=== PATIENT | female | born 1980 | race Caucasian/White ===

== ENCOUNTER → 2018-08-23 | Outpatient (CLI) | payer OTHER ==
[2018-08-23 08:29] LABS: BASOPHILS # (AUTO) 0.05 x10^3/uL (0-0.1); BASOPHILS % (AUTO) 1 % (0-1); EOSINOPHILS # (AUTO) 0.07 x10^3/uL (0-0.4); EOSINOPHILS % (AUTO) 1 % (1-7); LYMPHOCYTES # (AUTO) 1.53 x10^3/uL (1-3.4); LYMPHOCYTES % (AUTO) 24 % (22-44); MD NO; MEAN CORPUSCULAR HEMOGLOBIN 32.6 pg (27.0-34.8); MEAN CORPUSCULAR HGB CONC 33.3 g/dL (32.4-35.8); MEAN PLATELET VOLUME 9.5 fL (7.4-10.4); MONOCYTES # (AUTO) 0.49 x10^3/uL (0.2-0.8); MONOCYTES % (AUTO) 8 % (2-9); NEUTROPHILS # (AUTO) 4.21 x10^3/uL (1.8-6.8); NEUTROPHILS % (AUTO) 66 % (42-75); PLATELET COUNT 244 x10^3/uL (130-400); RED BLOOD COUNT 4.48 x10^6/uL (3.82-5.3); RED CELL DISTRIBUTION WIDTH 13.1 % (9.6-15.2)
[2018-08-23 08:38] LABS: ALANINE AMINOTRANSFERASE 28 U/L (12-78); ALBUMIN 4.1 g/dL (3.4-5.0); ANION GAP 3 mmol/L (5-15); CALCIUM 9.2 mg/dL (8.5-10.1); CHLORIDE 108 mmol/L (98-107); CREATININE 0.88 mg/dL (0.55-1.02)
[2018-08-23 08:43] LABS: ALKALINE PHOSPHATASE 47 U/L (45-117); BILIRUBIN,TOTAL 0.7 mg/dL (0.2-1.0); TOTAL PROTEIN 7.6 g/dL (6.4-8.2)
[2018-08-23 08:54] LABS: CHOL/HDL RATIO 2.5; LDL/HDL RATIO 1.3 (0.5-3.0); THYROID STIMULATING HORMONE 1.84 mIU/L (0.358-3.740)
== END | disposition home or self-care (01) ==
LOC: LAB 08:08
PROVIDERS: ATTEND Nurse Practitioner Family
DX: Z51.81 Encounter for therapeutic drug level monitoring (principal); L70.0 Acne vulgaris
CPT/HCPCS: 36415; 80053; 80061; 82306; 84443; 84702; 85025

== ENCOUNTER → 2018-08-30 | Outpatient (CLI) | payer OTHER | END | disposition home or self-care (01) | LOC: CFH 16:04 | PROVIDERS: ATTEND Obstetrics & Gynecology Female Pelvic Medicine and Reconstructive Surgery | DX: N83.02 Follicular cyst of left ovary (principal); N83.01 Follicular cyst of right ovary; N93.8 Other specified abnormal uterine and vaginal bleeding | CPT/HCPCS: 76830 ==

== ENCOUNTER → 2018-10-18 | Outpatient (CLI) | payer OTHER ==
[2018-10-18 08:36] LABS: ALBUMIN 4.2 g/dL (3.4-5.0); CALCIUM 8.6 mg/dL (8.5-10.1); CHLORIDE 108 mmol/L (98-107)
[2018-10-18 08:44] LABS: ALANINE AMINOTRANSFERASE 25 U/L (12-78); ALKALINE PHOSPHATASE 42 U/L (45-117); ANION GAP 4 mmol/L (5-15); BILIRUBIN,TOTAL 0.6 mg/dL (0.2-1.0); CHOLESTEROL, TOTAL 190 mg/dL (140-239); CREATININE 0.88 mg/dL (0.55-1.02); TOTAL PROTEIN 7.5 g/dL (6.4-8.2); TRIGLYCERIDES 95 mg/dL (50-200)
== END | disposition home or self-care (01) ==
LOC: LAB 08:14
PROVIDERS: ATTEND Specialist
DX: Z51.81 Encounter for therapeutic drug level monitoring (principal); L70.0 Acne vulgaris
CPT/HCPCS: 36415; 80053; 82465; 84478; 84702

== ENCOUNTER → 2018-11-17 | Outpatient (CLI) | payer OTHER ==
[2018-11-17 08:07] LABS: ALANINE AMINOTRANSFERASE 28 U/L (12-78); ALBUMIN 4.1 g/dL (3.4-5.0); ANION GAP 3 mmol/L (5-15); CALCIUM 8.5 mg/dL (8.5-10.1); CHLORIDE 108 mmol/L (98-107)
[2018-11-17 08:11] LABS: ALKALINE PHOSPHATASE 50 U/L (45-117); BILIRUBIN,TOTAL 0.5 mg/dL (0.2-1.0); CHOLESTEROL, TOTAL 193 mg/dL (140-239); CREATININE 0.89 mg/dL (0.55-1.02); TOTAL PROTEIN 7.2 g/dL (6.4-8.2); TRIGLYCERIDES 106 mg/dL (50-200)
== END | disposition home or self-care (01) ==
LOC: LAB 07:45
PROVIDERS: ATTEND Specialist
DX: Z51.81 Encounter for therapeutic drug level monitoring (principal)
CPT/HCPCS: 36415; 80053; 82465; 84478; 84702

== ENCOUNTER → 2018-12-21 | Outpatient (CLI) | payer OTHER ==
[2018-12-21 08:37] LABS: ALANINE AMINOTRANSFERASE 24 U/L (12-78); ALBUMIN 3.9 g/dL (3.4-5.0); ANION GAP 3 mmol/L (5-15); CALCIUM 8.7 mg/dL (8.5-10.1); CHLORIDE 108 mmol/L (98-107); CHOLESTEROL, TOTAL 205 mg/dL (140-239); CREATININE 0.82 mg/dL (0.55-1.02)
[2018-12-21 08:42] LABS: ALKALINE PHOSPHATASE 50 U/L (45-117); BILIRUBIN,TOTAL 0.5 mg/dL (0.2-1.0); TOTAL PROTEIN 7.1 g/dL (6.4-8.2); TRIGLYCERIDES 97 mg/dL (50-200)
== END | disposition home or self-care (01) ==
LOC: LAB 08:17
PROVIDERS: ATTEND Specialist
DX: Z51.81 Encounter for therapeutic drug level monitoring (principal); L70.0 Acne vulgaris
CPT/HCPCS: 36415; 80053; 82465; 84478; 84702

== ENCOUNTER 2019-03-11 20:07 | Emergency (ER) | payer OTHER ==
[~2019-03-11] VITALS: Ht 157.5 cm; Wt 62.0 kg
[2019-03-11 22:19] VITALS: BP 115/74
== END 2019-03-11 23:31 | disposition home or self-care (01) ==
LOC: ED 22:48
DX: R00.2 Palpitations (principal); I49.9 Cardiac arrhythmia, unspecified; Z86.79 Personal history of other diseases of the circulatory system
CPT/HCPCS: 36415; 80053; 83735; 84443; 84484; 84703; 85025; 93005; 99284

== ENCOUNTER → 2019-09-02 | Outpatient (CLI) | payer OTHER ==
[2019-09-02 08:39] LABS: BASOPHILS # (AUTO) 0.03 x10^3/uL (0-0.1); BASOPHILS % (AUTO) 1 % (0-1); EOSINOPHILS # (AUTO) 0.08 x10^3/uL (0-0.4); EOSINOPHILS % (AUTO) 1 % (1-7); LYMPHOCYTES # (AUTO) 1.19 x10^3/uL (1-3.4); LYMPHOCYTES % (AUTO) 21 % (22-44); MD NO; MEAN CORPUSCULAR HEMOGLOBIN 32.8 pg (27.0-34.8); MEAN CORPUSCULAR HGB CONC 33.2 g/dL (32.4-35.8); MEAN CORPUSCULAR VOLUME 98.7 fL (80-100); MEAN PLATELET VOLUME 9.4 fL (7.4-10.4); MONOCYTES # (AUTO) 0.27 x10^3/uL (0.2-0.8); MONOCYTES % (AUTO) 5 % (2-9); NEUTROPHILS # (AUTO) 4.11 x10^3/uL (1.8-6.8); NEUTROPHILS % (AUTO) 72 % (42-75); PLATELET COUNT 199 x10^3/uL (130-400); RED BLOOD COUNT 4.28 x10^6/uL (3.82-5.3)
[2019-09-02 08:41] LABS: ALBUMIN 3.9 g/dL (3.4-5.0); ANION GAP 7 mmol/L (5-15); C-REACTIVE PROTEIN, QUANT 0.03 mg/dL (0.02-0.49); CALCIUM 8.5 mg/dL (8.5-10.1); CHLORIDE 107 mmol/L (98-107); TRIGLYCERIDES 68 mg/dL (50-200)
[2019-09-02 08:42] LABS: CHOLESTEROL, TOTAL 187 mg/dL (140-239); VLDL CHOLESTEROL 14 mg/dL (0-25)
[2019-09-02 09:07] LABS: % IRON SATURATION 28 % (20-55); ALANINE AMINOTRANSFERASE 43 U/L (12-78); ALKALINE PHOSPHATASE 53 U/L (45-117); BILIRUBIN,TOTAL 0.7 mg/dL (0.2-1.0); CHOL/HDL RATIO 2.7; CREATININE 0.91 mg/dL (0.55-1.02); FREE T4 (FREE THYROXINE) 1.16 ng/dL (0.76-1.46); HDL CHOL % 37 % (28-40); HDL CHOLESTEROL (DIRECT) 69 mg/dL (40-60); IRON LEVEL 82 mcg/dL (50-170); LDL CHOLESTEROL,CALCULATED 104 mg/dL (54-169); LDL/HDL RATIO 1.5 (0.5-3.0); TOTAL IRON BINDING CAPACITY 291 mcg/dL (250-450); TOTAL PROTEIN 7.3 g/dL (6.4-8.2)
[2019-09-02 09:10] LABS: FOLATE LEVEL > 20.0 ng/mL (3.1-17.5)
[2019-09-02 09:21] LABS: HCT (SEDRATE) 42.2 % (34.6-47.8)
== END | disposition home or self-care (01) ==
LOC: LAB 08:07
PROVIDERS: ATTEND Physician Assistant
DX: E55.9 Vitamin D deficiency, unspecified (principal); I73.00 Raynaud's syndrome without gangrene; L65.9 Nonscarring hair loss, unspecified; L70.0 Acne vulgaris; R00.2 Palpitations; R53.83 Other fatigue
CPT/HCPCS: 36415; 80053; 80061; 82306; 82607; 82626; 82728; 82746; 83540; 83550; 84146; 84402; 84403; 84439; 84443; 84480; 84630; 85025; 85651; 86038; 86140; 86200; 86430; 86592

== ENCOUNTER → 2020-02-29 | Outpatient (CLI) | payer OTHER | END | disposition home or self-care (01) | LOC: CFH 15:15 | PROVIDERS: ATTEND Physician Assistant | DX: M79.18 Myalgia, other site (principal) ==

== ENCOUNTER → 2020-03-28 | Outpatient (CLI) | payer OTHER | END | disposition home or self-care (01) | LOC: CFH 15:08 | PROVIDERS: ATTEND Obstetrics & Gynecology Female Pelvic Medicine and Reconstructive Surgery | DX: N64.4 Mastodynia (principal) | CPT/HCPCS: 76642; 77066; G0279 ==

== ENCOUNTER → 2020-06-01 | Outpatient (CLI) | payer OTHER ==
[2020-06-01 08:15] LABS: ANION GAP 4 mmol/L (5-15); CALCIUM 9.1 mg/dL (8.5-10.1); CHLORIDE 108 mmol/L (98-107); CREATININE 0.92 mg/dL (0.55-1.02)
== END | disposition home or self-care (01) ==
LOC: LAB 07:54
PROVIDERS: ATTEND Dermatology
DX: L70.0 Acne vulgaris (principal); L64.8 Other androgenic alopecia
CPT/HCPCS: 36415; 80048

== ENCOUNTER → 2020-08-15 | Outpatient (CLI) | payer OTHER ==
[2020-08-15 14:37] LABS: ANION GAP 4 mmol/L (5-15); CALCIUM 9.1 mg/dL (8.5-10.1); CHLORIDE 107 mmol/L (98-107)
== END | disposition home or self-care (01) ==
LOC: LAB 14:12
PROVIDERS: ATTEND Dermatology
DX: L70.0 Acne vulgaris (principal); L64.8 Other androgenic alopecia; L90.5 Scar conditions and fibrosis of skin
CPT/HCPCS: 36415; 80048

== ENCOUNTER → 2021-04-25 | Outpatient (CLI) | payer OTHER | END | disposition home or self-care (01) | LOC: LAB 07:09 | PROVIDERS: ATTEND Internal Medicine | DX: Z00.00 Encounter for general adult medical examination without abnormal findings (principal); L65.9 Nonscarring hair loss, unspecified ==